=== PATIENT | female | born 1970 | race American Indian/Alaskan Native ===

== ENCOUNTER 2020-11-19 02:37 | Inpatient (IN) | payer MEDICAID, OTHER ==
--- NOTE | 2020-11-19 02:58 | Emergency Department Report ---
HPI - General Chief Complaint: Altered Mental Status Time Seen by Provider: 11/19/20 02:47 - HPI HPI: 50-year-old female with history of ESRD on hemodialysis on unknown schedule brought in by EMS due to worsening altered mental status after the patient mi ssed her last 3 dialysis sessions. The patient is very confused and only answers some questions appropriately. She is not oriented to time or place. She states that she has no physical complaints. When asked why she missed her last 3 dialysis sessions, she replies that she was being lazy. Further details of the HPI are limited due to the patient's current clinical condition. ED Past Medical Hx - Past Medical History Previous Medical History?: Yes Hx Hypertension: Yes Hx Renal Disease: Yes (dialysis) - Social History Smoking Status: Unknown if ever smoked Substance Use Type: None ED Review of Systems ROS: Stated complaint: SOB Other details as noted in HPI Comment: Unobtainable due to pts medical conditions Physical Exam - Physical Exam Physical Exam: GENERAL: Well developed and well nourished. In mild distress. HEENT: Normocephalic. No obvious signs of trauma. Moist mucous membranes. EYES: Extraocular movements are intact. Pupils are equal round and reactive to light bilaterally NECK: Supple. Trachea is midline. LUNGS: Tachypneic but without accessory muscle use. Equal chest rise bilaterally. Lung auscultation reveals bibasilar rales up to the mid lung. HEART/CARDIOVASCULAR: Regular rate and rhythm. No murmurs or rubs. VASCULAR: 2+ peripheral pulses. Cap refill < 2 seconds. Left upper arm fistula with overlying thrill and bruit. 3+ pitting edema of bilateral lower extremities. ABDOMEN: Abdomen is slightly distended but soft. There is no significant tende rness, guarding or rebound. SKIN: Skin is warm and dry NEURO: Patient is awake and alert. She is oriented to self only. She is not oriented to time or place. clean rice grader and reel tender II-XII grossly intact. No focal deficits. Normal motor and sensory exam. MUSCULOSKELETAL: No obvious deformities. No significant tenderness. Normal ROM throughout. ED Medical Decision Making - Lab Data Result diagrams: 11/19/20 03:02 11/19/20 03:02 Lab Results 11/19/20 11/19/20 11/19/20 Range/Units 03:02 03:02 03:02 WBC 7.8 (4.5-11.0) K/mm3 RBC 3.04 L (3.65-5.03) M/mm3 Hgb 8.5 L (10.1-14.3) gm/dl Hct 25.1 L (30.3-42.9) % MCV 83 (79-97) fl MCH 28 (28-32) pg MCHC 34 (30-34) % RDW 15.6 H (13.2-15.2) % Plt Count 210 (140-440) K/mm3 Lymph % (Auto) 26.1 (13.4-35.0) % [place] % (Auto) 4.9 (0.0-7.3) % Eos % (Auto) 1.7 (0.0-4.3) % Baso % (Auto) 0.7 (0.0-1.8) % Lymph # (Auto) 2.0 (1.2-5.4) K/mm3 [place] # (Auto) 0.4 (0.0-0.8) K/mm3 Eos # (Auto) 0.1 (0.0-0.4) K/mm3 Baso # (Auto) 0.1 (0.0-0.1) K/mm3 Seg Neutrophils % 66.6 (40.0-70.0) % Seg Neutrophils # 5.2 (1.8-7.7) K/mm3 PT 14.1 (12.2-14.9) Sec. INR 1.04 (0.87-1.13) APTT 27.4 (24.2-36.6) Sec. Sodium (137-145) mmol/L Potassium (3.6-5.0) mmol/L Chloride (98-107) mmol/L Carbon Dioxide (22-30) mmol/L Anion Gap mmol/L BUN (7-17) mg/dL Creatinine (0.6-1.2) mg/dL Estimated GFR ml/min BUN/Creatinine Ratio % Glucose (65-100) mg/dL Calcium (8.4-10.2) mg/dL Phosphorus (2.5-4.5) mg/dL Magnesium 2.30 (1.7-2.3) mg/dL Total Bilirubin 0.40 (0.1-1.2) mg/dL Direct Bilirubin < 0.2 (0-0.2) mg/dL Indirect Bilirubin 0.2 mg/dL AST 5 (5-40) units/L ALT < 5 L (7-56) units/L Alkaline Phosphatase 92 (35-129) units/L Ammonia (25-60) umol/L Total Protein 7.9 (6.3-8.2) g/dL Albumin 4.4 (3.9-5) g/dL Albumin/Globulin Ratio 1.3 % 11/19/20 11/19/20 11/19/20 Range/Units 03:02 03:02 03:02 WBC (4.5-11.0) K/mm3 RBC (3.65-5.03) M/mm3 Hgb (10.1-14.3) gm/dl Hct (30.3-42.9) % MCV (79-97) fl MCH (28-32) pg MCHC (30-34) % RDW (13.2-15.2) % Plt Count (140-440) K/mm3 Lymph % (Auto) (13.4-35.0) % [place] % (Auto) (0.0-7.3) % Eos % (Auto) (0.0-4.3) % Baso % (Auto) (0.0-1.8) % Lymph # (Auto) (1.2-5.4) K/mm3 [place] # (Auto) (0.0-0.8) K/mm3 Eos # (Auto) (0.0-0.4) K/mm3 Baso # (Auto) (0.0-0.1) K/mm3 Seg Neutrophils % (40.0-70.0) % Seg Neutrophils # (1.8-7.7) K/mm3 PT (12.2-14.9) Sec. INR (0.87-1.13) APTT (24.2-36.6) Sec. Sodium 134 L (137-145) mmol/L Potassium 6.6 H* (3.6-5.0) mmol/L Chloride 100.5 (98-107) mmol/L Carbon Dioxide 13 L (22-30) mmol/L Anion Gap 27 mmol/L BUN 98 H (7-17) mg/dL Creatinine 19.5 H (0.6-1.2) mg/dL Estimated GFR 2 ml/min BUN/Creatinine Ratio 5 % Glucose 105 H (65-100) mg/dL Calcium 10.0 (8.4-10.2) mg/dL Phosphorus 5.90 H (2.5-4.5) mg/dL Magnesium (1.7-2.3) mg/dL Total Bilirubin (0.1-1.2) mg/dL Direct Bilirubin (0-0.2) mg/dL Indirect Bilirubin mg/dL AST (5-40) units/L ALT (7-56) units/L Alkaline Phosphatase (35-129) units/L Ammonia 28.0 (25-60) umol/L Total Protein (6.3-8.2) g/dL Albumin (3.9-5) g/dL Albumin/Globulin Ratio % - EKG Data -: EKG Interpreted by Me - EKG Data 11/19/20 05:18 Sinus tachycardia. Normal axis. Normal intervals. No ectopy. No significant ST segment or T wave abnormalities. - Radiology Data Examination: CT of the head without contrast Clinical information: Altered mental status Comparison: None Technical: Multiple axial CT images of the head were obtained without intravenous contrast. Sagittal and coronal reformats were obtained. All CTs at this facility utilize dose reduction techniques including automated exposure control, iterative reconstruction and weight based dosing when appropriate to reduce patient radiation dose to as low as reasonable achievable. Findings: INTRACRANIAL CONTENTS: There is no CT evidence of acute intracranial hemorrhage or large territorial infarct. The ventricular system is normal in size. There is no evidence of mass effect or midline shift. SKULL: No acute bony abnormality is visualized. ORBITS: The bilateral orbits and globes appear normal PARANASAL SINUSES / MASTOID AIR CELLS: Paranasal sinuses and mastoid air cells appear clear. Impression: 1. No CT evidence of acute intracranial process. Signer Name: Christianne Aviles MD Signed: 11/19/2020 5:34 AM Workstation Name: [id number] CHEST 1 VIEW, 11/19/2020 3:40 AM CLINICAL INFORMATION/INDICATION: Shortness of breath COMPARISON: None. FINDINGS: SUPPORT DEVICES: None. HEART: The cardiac silhouette is normal in size. LUNGS/PLEURA: The lungs are clear of focal airspace disease or significant pleural effusion. ADDITIONAL FINDINGS: No additional acute findings. IMPRESSION: 1. No evidence of acute cardiopulmonary process. Signer Name: Christianne Aviles MD Signed: 11/19/2020 2:55 AM Workstation Name: [id number] - Medical Decision Making 50-year-old female with unknown history other than ESRD on hemodialysis brought in by EMS for altered mental status and apparently shortness of breath. The patient missed her last 3 dialysis sessions. She is unable to explain why. She is hypertensive and tachycardic. She is very confused and details of the HPI are thus very limited. She is not oriented to time or place and believes that it is 1970. Physical examination reveals bibasilar rales. She has 3+ pitting edema bilateral lower extremities. Her left upper extremity fistula has a thrill and bruit. There are no focal neurologic deficits. Given that I am highly suspicious that the patient's altered mental status represents encephalopathy secondary to metabolic disturbance, namely uremia, I immediately placed a call to nephrology to arrange urgent hemodialysis. EKG was performed and does not reveal any acute abnormalities. Full set of labs and chest x-ray have been ordered. At 3:22 AM I spoke with Dr. Dawn of nephrology regarding the case. He says that he will put in orders for urgent dialysis. Given the patient's extremely elevated blood pressure in the 190s to 200s systolic, I have ordered nitroglycerin paste and 10 mg of IV hydralazine. Ultimately her blood pressure will be controlled with hemodialysis. At 4:45 AM, I received a call from the lab that the patient has a critically elevated potassium of 6.6. Again there are no significant EK G changes associated with hyperkalemia on her initial EKG. I ordered 1 g of calcium, 10 units of IV insulin, 1 ampoule of D50, 1 ampoule of bicarbonate, and Kayexalate. She has severe acidosis with bicarb of 13 and anion gap of 27. Her creatinine is elevated at 19.5 consistent with ESRD. BUN is elevated at 98 consistent with uremia. I again spoke with Dr. Dawn over the phone regarding the patient's labs and he states he will have the patient dialyzed as soon as possible. At 5:10 AM I spoke to the hospitalist, Dr. Johnson regarding the case. He accepts the patient for admission and will assume care. Although I suspect that her mental status change is related to metabolic acidosis and uremia, he requested that I order CT scan of the head which I have done. CT of the head reveals no acute abnormalities. Critical Care Time: Yes (80) Critical care time in (mins) excluding proc time.: 80 Critical care attestation.: If time is entered above; I have spent that time in minutes in the direct care of this critically ill patient, excluding procedure time. Critical care time was spent in the evaluation/assessment and management of life-threatening uremia, hyperkalemia, renal failure, and hypertensive urgency requiring administration of multiple IV medications and close monitoring as well as coordination of care with specialist. ED Disposition Clinical Impression: Uremia, Encephalopathy, ESRD (end stage renal disease), Hyperkalemia, Hypertensive urgency Disposition: OP ADMIT IP TO THIS HOSP Is pt being admited?: Yes Condition: Critical
[2020-11-19 03:23] LABS: Basophils # (Auto) 0.1 K/mm3 (0.0-0.1); Basophils % (Auto) 0.7 % (0.0-1.8); Eosinophils # (Auto) 0.1 K/mm3 (0.0-0.4); Eosinophils % (Auto) 1.7 % (0.0-4.3); Hematocrit 25.1 % (30.3-42.9); Hemoglobin 8.5 gm/dl (10.1-14.3); Lymphocytes % (Auto) 26.1 % (13.4-35.0); Mean Corpuscular HGB Conc 34 % (30-34); Mean Corpuscular Volume 83 fl (79-97); Monocytes # (Auto) 0.4 K/mm3 (0.0-0.8); Monocytes % (Auto) 4.9 % (0.0-7.3); Platelet Count 210 K/mm3 (140-440); Red Blood Count 3.04 M/mm3 (3.65-5.03); Red Cell Distribution Width 15.6 % (13.2-15.2)
[2020-11-19 03:31] LABS: INR 1.04 (0.87-1.13)
[2020-11-19 03:32] LABS: Partial Thromboplastin Time 27.4 Sec. (24.2-36.6)
[2020-11-19] MEDS ORDERED: SODIUM CHLORIDE 0.9% 100 ML IV PRN (03:32)
[2020-11-19] MEDS ORDERED: EPOETIN ALFA-EPBX 10,000 UNIT/1 ML VIAL IV PRN ×2 (03:33→19:12)
[2020-11-19 03:48] LABS: Albumin 4.4 g/dL (3.9-5)
[2020-11-19 03:57] LABS: Alanine Aminotransferase < 5 units/L (7-56); Bilirubin,Direct < 0.2 mg/dL (0-0.2)
--- NOTE | 2020-11-19 03:59 | XRay Report ---
CHEST 1 VIEW, 11/19/2020 3:40 AM CLINICAL INFORMATION/INDICATION: Shortness of breath COMPARISON: None. FINDINGS: SUPPORT DEVICES: None. HEART: The cardiac silhouette is normal in size. LUNGS/PLEURA: The lungs are clear of focal airspace disease or significant pleural effusion. ADDITIONAL FINDINGS: No additional acute findings. IMPRESSION: 1. No evidence of acute cardiopulmonary process. Signer Name: Christianne Aviles MD Signed: 11/19/2020 3:55 AM Workstation Name: [id number]
[2020-11-19] MEDS ORDERED: ONDANSETRON 4 MG/2 ML INJ IV ONE (04:22)
[2020-11-19] MEDS ORDERED: NITROGLYCERIN 2% OINT 1 GM TP ONE (04:29)
[2020-11-19] MEDS ORDERED: hydrALAZINE 20 MG/1 ML INJ IV ONE (04:30)
[2020-11-19] MEDS ORDERED: DEXTROSE 50% IN WATER (25GM) 50 ML SYRINGE IV ONE (04:46)
[2020-11-19] MEDS ORDERED: INSULIN REGULAR, HUMAN 100 UNITS/1 ML IV ONE (04:46)
[2020-11-19] MEDS ORDERED: CALCIUM CHLORIDE 1,000 MG in SODIUM CHLORIDE 0.9% 100 ML IV ONE (04:47)
[2020-11-19] MEDS ORDERED: SODIUM POLYSTYRENE 15 GM/60 ML ORAL LIQD PO ONE (04:50)
[2020-11-19] MEDS ORDERED: CALCIUM CHLORIDE 1,000 MG/10 ML SYRINGE IV ONE (05:21)
[2020-11-19] MEDS ORDERED: ACETAMINOPHEN 325 MG TAB PO PRN (05:48)
[2020-11-19] MEDS ORDERED: ONDANSETRON 4 MG/2 ML INJ IV PRN (05:48)
[2020-11-19] MEDS ORDERED: ALBUTEROL 2.5 MG/3 ML NEBU IH PRN (05:48)
--- NOTE | 2020-11-19 05:55 | History and Physical Report ---
History of Present Illness Date of examination: 11/19/20 Date of admission: 11/19/20 05:09 Chief complaint: Altered mental status History of present illness: 50-year-old female with history of hypertension and end-stage renal disease on dialysis on unknown schedule brought in by EMS due to worsening altered mental status after the patient missed her last 3 dialysis sessions. The patient is very confused and only answers some questions appropriately. She is not oriented to time or place. She states that she has no physical complaints. When asked why she missed her last 3 dialysis sessions, she replies that she was being lazy. Further details of the HPI are limited due to the patient's current clinical condition In the emergency room patient is found to have BUN of 98 and creatinine 19.5 and potassium 6.6. Patient is going for emergent dialysis. Nephrology is consulted Past History Past Medical History: ESRD, hypertension, other (Hyperkalemia) Medications and Allergies Allergies Allergy/AdvReac Type Severity Reaction Status Date / Time No Known Allergies Allergy Verified 11/19/20 05:01 Active Meds: Active Medications Sodium Chloride (Nacl 0.9%) 100 mls @ 999 mls/hr IV MARY KAY PRN PRN Reason: Hypotension Review of Systems Neurological: change in mentation, confusion Exam - Constitutional Vitals: Temp Pulse Resp BP Pulse Ox 109 H 13 198/107 100 11/19/20 04:30 11/19/20 04:30 11/19/20 05:41 11/19/20 04:16 General appearance: Present: no acute distress, well-nourished - EENT Eyes: Present: PERRL ENT: hearing intact, clear oral mucosa - Neck Neck: Present: supple, normal ROM - Respiratory Respiratory effort: normal Respiratory: bilateral: CTA - Cardiovascular Heart Sounds: Present: S1 & S2. Absent: rub, click - Extremities Extremities: pulses symmetrical, No edema Peripheral Pulses: within normal limits - Abdominal General gastrointestinal: Present: soft, non-tender, non-distended, normal bowel sounds Female genitourinary: Present: normal - Integumentary Integumentary: Present: clear, warm, dry - Musculoskeletal Musculoskeletal: gait normal, strength equal bilaterally - Psychiatric Psychiatric: other (Confusion) - Neurologic Neurologic: CNII-XII intact, moves all extremities, other (Confused. Alert but not oriented to time and place) Results - Labs CBC & Chem 7: 11/19/20 03:02 11/19/20 03:02 Labs: Laboratory Last Values WBC 7.8 K/mm3 (4.5-11.0) 11/19/20 03:02 RBC 3.04 M/mm3 (3.65-5.03) L 11/19/20 03:02 Hgb 8.5 gm/dl (10.1-14.3) L 11/19/20 03:02 Hct 25.1 % (30.3-42.9) L 11/19/20 03:02 MCV 83 fl (79-97) 11/19/20 03:02 MCH 28 pg (28-32) 11/19/20 03:02 MCHC 34 % (30-34) 11/19/20 03:02 RDW 15.6 % (13.2-15.2) H 11/19/20 03:02 Plt Count 210 K/mm3 (140-440) 11/19/20 03:02 Lymph % (Auto) 26.1 % (13.4-35.0) 11/19/20 03:02 [place] % (Auto) 4.9 % (0.0-7.3) 11/19/20 03:02 Eos % (Auto) 1.7 % (0.0-4.3) 11/19/20 03:02 Baso % (Auto) 0.7 % (0.0-1.8) 11/19/20 03:02 Lymph # (Auto) 2.0 K/mm3 (1.2-5.4) 11/19/20 03:02 [place] # (Auto) 0.4 K/mm3 (0.0-0.8) 11/19/20 03:02 Eos # (Auto) 0.1 K/mm3 (0.0-0.4) 11/19/20 03:02 Baso # (Auto) 0.1 K/mm3 (0.0-0.1) 11/19/20 03:02 Seg Neutrophils % 66.6 % (40.0-70.0) 11/19/20 03:02 Seg Neutrophils # 5.2 K/mm3 (1.8-7.7) 11/19/20 03:02 PT 14.1 Sec. (12.2-14.9) 11/19/20 03:02 INR 1.04 (0.87-1.13) 11/19/20 03:02 APTT 27.4 Sec. (24.2-36.6) 11/19/20 03:02 Sodium 134 mmol/L (137-145) L 11/19/20 03:02 Potassium 6.6 mmol/L (3.6-5.0) H* 11/19/20 03:02 Chloride 100.5 mmol/L (98-107) 11/19/20 03:02 Carbon Dioxide 13 mmol/L (22-30) L 11/19/20 03:02 Anion Gap 27 mmol/L 11/19/20 03:02 BUN 98 mg/dL (7-17) H 11/19/20 03:02 Creatinine 19.5 mg/dL (0.6-1.2) H 11/19/20 03:02 Estimated GFR 2 ml/min 11/19/20 03:02 BUN/Creatinine Ratio 5 % 11/19/20 03:02 Glucose 105 mg/dL (65-100) H 11/19/20 03:02 Calcium 10.0 mg/dL (8.4-10.2) 11/19/20 03:02 Phosphorus 5.90 mg/dL (2.5-4.5) H 11/19/20 03:02 Magnesium 2.30 mg/dL (1.7-2.3) 11/19/20 03:02 Total Bilirubin 0.40 mg/dL (0.1-1.2) 11/19/20 03:02 Direct Bilirubin < 0.2 mg/dL (0-0.2) 11/19/20 03:02 Indirect Bilirubin 0.2 mg/dL 11/19/20 03:02 AST 5 units/L (5-40) 11/19/20 03:02 ALT < 5 units/L (7-56) L 11/19/20 03:02 Alkaline Phosphatase 92 units/L (35-129) 11/19/20 03:02 Ammonia 28.0 umol/L (25-60) 11/19/20 03:02 Total Protein 7.9 g/dL (6.3-8.2) 11/19/20 03:02 Albumin 4.4 g/dL (3.9-5) 11/19/20 03:02 Albumin/Globulin Ratio 1.3 % 11/19/20 03:02 - Imaging and Cardiology Chest x-ray: report reviewed Assessment and Plan VTE prophylaxis?: Chemical Plan of care discussed with patient/family: Yes - Patient Problems (1) End stage renal disease on dialysis Current Visit: Yes Status: Acute Plan to address problem: Admit the patient to the [facility]. Patient get an insulin 10 unit IV x1 dose, D50 1 ampoule. Calcium chloride 100 mg IV x1 dose. consult nephrology for emergent dialysis. Patient is going for emergent dialysis. We will recheck BMP in the morning (2) Hyperkalemia Current Visit: Yes Status: Acute Plan to address problem: Patient get an insulin 10 unit IV x1 dose, D50 1 ampoule. Calcium chloride 100 mg IV x1 dose. consult nephrology for emergent dialysis. Patient is going for dialysis. We will recheck BMP in the morning (3) Acute metabolic encephalopathy Current Visit: Yes Status: Acute Plan to address problem: Most likely from uremia and chronic kidney disease. Patient is going for emergent dialysis. Will consult nephrology. Recheck BMP in the morning. Please follow the CT scan of the head without contrast. (4) Hypertension Current Visit: Yes Status: Acute Plan to address problem: Hydralazine 10 mg IV every 6 hours as needed. We will monitor the blood pressure closely. (5) DVT prophylaxis Current Visit: Yes Status: Acute Plan to address problem: Heparin 5000 units subcu every 8 hours for DVT prophylaxis. Pepcid 20 mg p.o. twice daily for GI prophylaxis. Patient is a full code
[2020-11-19] MEDS ORDERED: SODIUM BICARB 8.4% 50 MEQ/50 ML SYRINGE IV ONE (05:57)
--- NOTE | 2020-11-19 06:38 | Cat Scan Report ---
Examination: CT of the head without contrast Clinical information: Altered mental status Comparison: None Technical: Multiple axial CT images of the head were obtained without intravenous contrast. Sagittal and coronal reformats were obtained. All CTs at this facility utilize dose reduction techniques inc luding automated exposure control, iterative reconstruction and weight based dosing when appropriate to reduce patient radiation dose to as low as reasonable achievable. Findings: INTRACRANIAL CONTENTS: There is no CT evidence of acute intracranial hemorrhage or large territorial infarct. The ventricular system is normal in size. There is no evidence of mass effect or midline lora ft. SKULL: No acute bony abnormality is visualized. ORBITS: The bilateral orbits and globes appear normal PARANASAL SINUSES / MASTOID AIR CELLS: Paranasal sinuses and mastoid air cells appear clear. Impression: 1. No CT evidence of acute intracranial process. Signer Name: Christianne Aviles MD Signed: 11/19/2020 6:34 AM Workstation Name: [id number]
[2020-11-19] MEDS: HEPARIN 5,000 UNIT/1 ML VIAL SUB-Q SCH ×3 (07:44→22:48)
[2020-11-19] MEDS ORDERED: FAMOTIDINE 20 MG TAB PO SCH (10:00)
--- NOTE | 2020-11-19 11:45 | Event Note ---
Date: 11/19/20 I have seen and examined patient at dialysis unit. She is having dialysis, still confused. Potassium 6.6. Will repeat after dialysis. To go to [facility] rm [id number].
[2020-11-19 12:06] LABS: Hepatitis B Surface Antigen Non-Reactive (Negative); Hepatitis C Virus Antibody Non-Reactive (NonReactive)
[2020-11-19] MEDS: FAMOTIDINE 10 MG TAB PO SCH ×2 (14:37→22:49)
[2020-11-19] MEDS: hydrALAZINE 20 MG/1 ML INJ IV PRN (18:33)
[2020-11-19] MEDS ORDERED: amLODIPine 5 MG TAB PO SCH (19:00)
--- NOTE | 2020-11-19 19:07 | Consultation ---
History of Present Illness - Reason for Consult Consult date: 11/19/20 end stage renal disease, hyperkalemia, metabolic acidosis - History of Present Illness This is a 50-year-old woman with end-stage renal disease on hemodialysis and hypertension who was brought in by emergency department due to acute encephalopathy. She reportedly missed her last 3 dialysis sessions and has been confused since admission. History was obtained from chart as patient is encephalopathic. Upon admission she was noted to have a BUN of 98, creatinine of 19.5 and potassium of 6.6. Nephrology was consulted for end-stage renal disease. Past History Past Medical History: ESRD, hypertension, other (Hyperkalemia) Medications and Allergies Allergies Allergy/AdvReac Type Severity Reaction Status Date / Time codeine Allergy Itching Verified 11/19/20 18:48 Active Meds: Active Medications Acetaminophen (Acetaminophen 325 Mg Tab) 650 mg PO Q4H PRN PRN Reason: Pain MILD(1-3)/Fever >100.5/GALVEZ Albuterol (Albuterol 2.5 Mg/3 Ml Nebu) 2.5 mg IH Q4HRT PRN PRN Reason: Shortness Of Breath Amlodipine Besylate (Amlodipine 5 Mg Tab) 5 mg PO QDAY [facility] Famotidine (Famotidine 10 Mg Tab) 10 mg PO BID [facility] Last Admin: 11/19/20 14:37 Dose: Not Given Documented by: Heparin Sodium (Porcine) (Heparin 5,000 Unit/1 Ml Vial) 5,000 unit SUB-Q Q8HR [facility] Last Admin: 11/19/20 15:19 Dose: 5,000 unit Documented by: Hydralazine HCl (Hydralazine 20 Mg/1 Ml Inj) 10 mg IV Q6H PRN PRN Reason: SBP >/=160; DBP >/=100 Last Admin: 11/19/20 18:33 Dose: 10 mg Documented by: Hydralazine HCl (Hydralazine 25 Mg Tab) 50 mg PO Q8HR [facility] Sodium Chloride (Nacl 0.9%) 100 mls @ 999 mls/hr IV MARY KAY PRN PRN Reason: Hypotension Ondansetron HCl (Ondansetron 4 Mg/2 Ml Inj) 4 mg IV Q8H PRN PRN Reason: Nausea And Vomiting Sodium Chloride (Sodium Chloride 0.9% 10 Ml Flush Syringe) 10 ml IV BID [facility] Last Admin: 11/19/20 14:37 Dose: Not Given Documented by: Sodium Chloride (Sodium Chloride 0.9% 10 Ml Flush Syringe) 10 ml IV PRN PRN PRN Reason: LINE FLUSH Review of Systems ROS unobtainable: due to mental status Exam - Vital Signs Vital signs: Vital Signs Pulse Ox 99 11/19/20 03:59 - Physical Exam Narrative exam: General: Mild distress HEENT: Oral mucosa moist Neck: Supple, no JVD Chest: Clear to auscultation bilaterally Heart: RRR, S1 and S2, no pericardial rub Abdomen: Soft, nontender, no renal bruit Extremity: No peripheral cyanosis, edema Neurological: Alert but confused and disoriented Dermatology: No skin rash Psych: No agitation Musculoskeletal: No joint effusion Results - Lab Results 11/19/20 03:02 11/19/20 17:24 Most recent lab results Calcium 10.0 mg/dL (8.4-10.2) 11/19/20 03:02 Phosphorus 5.90 mg/dL (2.5-4.5) H 11/19/20 03:02 Magnesium 2.30 mg/dL (1.7-2.3) 11/19/20 03:02 Assessment and Plan Assessment - End-stage renal disease on hemodialysis - Hyperkalemia - Hypertension - Anemia of ESRD - Acidosis - Acute encephalopathy. CT head negative for acute pathology Recommendations - Urgent HD this morning - Monitor labs and volume status daily and assess need for additional dialysis session - Continue home antihypertensives - Hold antihypertensives on hemodialysis days for systolics less than 160 - Epogen with HD - ESRD diet with 1.4 g/kg per day protein - Renally dose medication for creatinine clearance less than 15 cc/min
--- NOTE | 2020-11-19 19:46 | Electrocardiograph Report ---
[facility] Test Date: 2020-11-19 Test Time: 03:14:42 Pat Name: ZEENAT TERRELL Department: Room: A265 1 Gender: F [employer] Driver: SOUMYA : 1970 Requested By: ARSENIO LUGO Order Number: [id number] Reading MD: Christopher De Los Santos Measurements Intervals [place] Rate: 100 P: 73 NM: 164 QRS: 14 QRSD: 94 T: 102 QT: 354 QTc: 455 Interpretive Statements Sinus tachycardia Non specific T wave abnormalities in 1 and avL. No previous ECG available for comparison Electronically Signed On 11-19-2020 19:46:18 EDT by Christopher De Los Santos
[2020-11-19] MEDS: hydrALAZINE 25 MG TAB PO SCH ×2 (20:04→22:47)
[2020-11-20] MEDS: hydrALAZINE 20 MG/1 ML INJ IV PRN (00:33)
[2020-11-20 04:55] LABS: Basophils % (Auto) 0.6 % (0.0-1.8); Eosinophils % (Auto) 0.2 % (0.0-4.3); Hematocrit 23.4 % (30.3-42.9); Lymphocytes # (Auto) 1.5 K/mm3 (1.2-5.4); Lymphocytes % (Auto) 21.4 % (13.4-35.0); Mean Corpuscular HGB Conc 34 % (30-34); Mean Corpuscular Volume 81 fl (79-97); Monocytes # (Auto) 0.6 K/mm3 (0.0-0.8); Platelet Count 180 K/mm3 (140-440); Red Cell Distribution Width 15.4 % (13.2-15.2)
[2020-11-20 05:19] LABS: Calcium 9.1 mg/dL (8.4-10.2)
[2020-11-20] MEDS: HEPARIN 5,000 UNIT/1 ML VIAL SUB-Q SCH ×3 (05:25→21:44)
[2020-11-20] MEDS: hydrALAZINE 25 MG TAB PO SCH ×3 (05:25→21:44)
[2020-11-20] MEDS ORDERED: amLODIPine 5 MG TAB PO SCH (08:00)
[2020-11-20] MEDS: amLODIPine 10 MG TAB PO SCH (09:58)
[2020-11-20] MEDS: FAMOTIDINE 10 MG TAB PO SCH ×2 (09:58→21:44)
--- NOTE | 2020-11-20 11:42 | Progress Note ---
<TDKimberleeNEHEMIAHFilippo - Last Filed: 11/20/20 13:54> Assessment and Plan Assessment and plan: This is a 50-year-old female with ESRD on HD, HTN, depression admitted for hyperkalemia and need for emergent dialysis Acute metabolic encephalopathy Hyperkalemia ESRD on HD Hypertension Depression -Nephrology consulted emergency department, psych consulted today, appreciate recommendations -S/p insulin 10 units x 1, D50 x1, calcium chloride 1 g x 1 -11/19 CT headshowed no acute intracranial abnormality -HD per nephrology -Strict intake and output -Daily weights -Epogen with HD -Renally dose medications, avoid nephrotoxic medications. -Patient started on amlodipine, hydralazine -Blood pressure monitoring per protocol -Hydralazine as needed -Renal diet -Resume home medications once obtained -Trend CBC, BMP PPI/GI prophylaxis: Heparin subcu, SCDs to bilateral lower extremities while in bed, PPI Disposition: Transfer to floor History Interval history: This is a 50-year-old female with ESRD on HD, HTN, depression who presented to the emergency department on 11/19 with worsening altered mental status after missing 3 sessions of dialysis due to " being lazy". Work-up in the emergency department patient was found to have a BUN/creatinine of 98/19.5, hyperkalemia with potassium of 6.6, hyponatremia, metabolic acidosis and hyperphosphatemia. CT head showed no acute intracranial abnormality and CXR showed no acute evidence of cardiopulmonary process. Patient was admitted to the hospitalist service with emergent need for HD and nephrology was consulted. 11/10: Due to depression history with complications by possible situational depression psych was consulted today. Patient states that she would like to go home. Patient's hyperkalemia has resolved and blood pressure is much improved. Patient will be transferred to the floor. Hospitalist Physical - Constitutional Vitals: Temp Pulse Resp BP Pulse Ox 98.5 F 106 H 16 155/93 97 11/20/20 04:00 11/20/20 07:31 11/20/20 07:31 11/20/20 07:31 11/20/20 07:31 General appearance: Present: no acute distress, well-nourished, obese - EENT Eyes: Present: PERRL, EOM intact ENT: dentition normal - Neck Neck: Present: normal ROM - Respiratory Respiratory effort: normal Respiratory: bilateral: diminished - Cardiovascular Rhythm: regular Heart Sounds: Present: S1 & S2. Absent: systolic murmur, diastolic murmur - Extremities Extremities: no ischemia, pulses intact, pulses symmetrical, No edema, normal temperature, normal color Peripheral Pulses: within normal limits - Abdominal General gastrointestinal: soft, non-tender, non-distended, normal bowel sounds - Integumentary Integumentary: Present: clear, warm, dry - Psychiatric Psychiatric: cooperative, depressed - Neurologic Neurologic: CNII-XII intact, no focal deficits, moves all extremities - Allied Health Allied health notes reviewed: nursing Results - Labs CBC & Chem 7: 11/20/20 04:10 11/20/20 04:10 Labs: Laboratory Last Values WBC 6.9 K/mm3 (4.5-11.0) 11/20/20 04:10 RBC 2.90 M/mm3 (3.65-5.03) L 11/20/20 04:10 Hgb 8.0 gm/dl (10.1-14.3) L 11/20/20 04:10 Hct 23.4 % (30.3-42.9) L 11/20/20 04:10 MCV 81 fl (79-97) 11/20/20 04:10 MCH 28 pg (28-32) 11/20/20 04:10 MCHC 34 % (30-34) 11/20/20 04:10 RDW 15.4 % (13.2-15.2) H 11/20/20 04:10 Plt Count 180 K/mm3 (140-440) 11/20/20 04:10 Lymph % (Auto) 21.4 % (13.4-35.0) 11/20/20 04:10 [place] % (Auto) 9.0 % (0.0-7.3) H 11/20/20 04:10 Eos % (Auto) 0.2 % (0.0-4.3) 11/20/20 04:10 Baso % (Auto) 0.6 % (0.0-1.8) 11/20/20 04:10 Lymph # (Auto) 1.5 K/mm3 (1.2-5.4) 11/20/20 04:10 [place] # (Auto) 0.6 K/mm3 (0.0-0.8) 11/20/20 04:10 Eos # (Auto) 0.0 K/mm3 (0.0-0.4) 11/20/20 04:10 Baso # (Auto) 0.0 K/mm3 (0.0-0.1) 11/20/20 04:10 Seg Neutrophils % 68.8 % (40.0-70.0) 11/20/20 04:10 Seg Neutrophils # 4.7 K/mm3 (1.8-7.7) 11/20/20 04:10 PT 14.1 Sec. (12.2-14.9) 11/19/20 03:02 INR 1.04 (0.87-1.13) 11/19/20 03:02 APTT 27.4 Sec. (24.2-36.6) 11/19/20 03:02 Sodium 138 mmol/L (137-145) 11/20/20 04:10 Potassium 4.3 mmol/L (3.6-5.0) 11/20/20 04:10 Chloride 95.5 mmol/L (98-107) L 11/20/20 04:10 Carbon Dioxide 27 mmol/L (22-30) D 11/20/20 04:10 Anion Gap 20 mmol/L 11/20/20 04:10 BUN 35 mg/dL (7-17) H 11/20/20 04:10 Creatinine 10.1 mg/dL (0.6-1.2) H 11/20/20 04:10 Estimated GFR 5 ml/min 11/20/20 04:10 BUN/Creatinine Ratio 3 % 11/20/20 04:10 Glucose 95 mg/dL (65-100) 11/20/20 04:10 Calcium 9.1 mg/dL (8.4-10.2) 11/20/20 04:10 Phosphorus 5.90 mg/dL (2.5-4.5) H 11/19/20 03:02 Magnesium 2.30 mg/dL (1.7-2.3) 11/19/20 03:02 Total Bilirubin 0.40 mg/dL (0.1-1.2) 11/19/20 03:02 Direct Bilirubin < 0.2 mg/dL (0-0.2) 11/19/20 03:02 Indirect Bilirubin 0.2 mg/dL 11/19/20 03:02 AST 5 units/L (5-40) 11/19/20 03:02 ALT < 5 units/L (7-56) L 11/19/20 03:02 Alkaline Phosphatase 92 units/L (35-129) 11/19/20 03:02 Ammonia 28.0 umol/L (25-60) 11/19/20 03:02 Total Protein 7.9 g/dL (6.3-8.2) 11/19/20 03:02 Albumin 4.4 g/dL (3.9-5) 11/19/20 03:02 Albumin/Globulin Ratio 1.3 % 11/19/20 03:02 Hepatitis A IgM Ab Non-reactive (NonReactive) 11/19/20 11:10 Hep Bs Antigen Non-reactive (Negative) 11/19/20 11:10 Hep B Core IgM Ab Non-reactive (NonReactive) 11/19/20 11:10 Hepatitis C Antibody Non-reactive (NonReactive) 11/19/20 11:10 Active Medications - Current Medications Current Medications: Generic Name Dose Route Start Last Admin Trade Name Freq PRN Reason Stop Dose Admin Acetaminophen 650 mg 11/19/20 05:48 Acetaminophen 325 Mg Tab PO Q4H PRN Pain MILD(1-3)/Fever >100.5/GALVEZ Albuterol 2.5 mg 11/19/20 05:48 Albuterol 2.5 Mg/3 Ml Nebu IH Q4HRT PRN Shortness Of Breath Amlodipine Besylate 10 mg 11/20/20 10:00 11/20/20 09:58 Amlodipine 10 Mg Tab PO 10 mg DAILY AUGUSTUS Administration Famotidine 10 mg 11/19/20 10:00 11/20/20 09:58 Famotidine 10 Mg Tab PO 10 mg BID AUGUSTUS Administration Heparin Sodium (Porcine) 5,000 unit 11/19/20 06:00 11/20/20 05:25 Heparin 5,000 Unit/1 Ml Vial SUB-Q 5,000 unit Q8HR AUG[facility]US Administration Hydralazine HCl 10 mg 11/19/20 05:50 11/20/20 00:33 Hydralazine 20 Mg/1 Ml Inj IV 10 mg Q6H PRN Administration SBP >/=160; DBP >/=100 Hydralazine HCl 50 mg 11/19/20 19:00 11/20/20 05:25 Hydralazine 25 Mg Tab PO 50 mg Q8HR A[facility]US Administration Sodium Chloride 100 mls @ 999 mls/hr 11/19/20 03:32 Nacl 0.9% IV MARY KAY PRN Hypotension Ondansetron HCl 4 mg 11/19/20 05:48 11/19/20 21:09 Ondansetron 4 Mg/2 Ml Inj IV 4 mg Q8H PRN Administration Nausea And Vomiting Sodium Chloride 10 ml 11/19/20 10:00 11/20/20 09:59 Sodium Chloride 0.9% 10 Ml Flush Syringe IV 10 ml BID AUGUSTUS Administration Sodium Chloride 10 ml 11/19/20 05:48 Sodium Chloride 0.9% 10 Ml Flush Syringe IV PRN PRN LINE FLUSH <CASSIDY KRISHNAN - Last Filed: 12/12/20 11:29> Assessment and Plan Assessment and plan: I saw and evaluated the patient and discussed with Nurse practitioner. I agree with the findings and the plan of care as documented in the Nurse Practitioner's~note, with the following corrections and additions. Patient with acute metabolic encephalopathy due to uremia from missed hemodialysis. - Patient Problems (1) Acute metabolic encephalopathy Status: Acute (2) End stage renal disease on dialysis Status: Acute (3) Hyperkalemia Status: Acute Hospitalist Physical - Constitutional Vitals: Temp Pulse Resp BP Pulse Ox 97.9 F 103 H 11 L 105/74 94 11/21/20 08:00 11/21/20 12:01 11/21/20 12:01 11/21/20 10:01 11/21/20 09:00 Results - Labs CBC & Chem 7: 11/20/20 04:10 11/21/20 04:27 Labs: Laboratory Last Values WBC 6.9 K/mm3 (4.5-11.0) 11/20/20 04:10 RBC 2.90 M/mm3 (3.65-5.03) L 11/20/20 04:10 Hgb 8.0 gm/dl (10.1-14.3) L 11/20/20 04:10 Hct 23.4 % (30.3-42.9) L 11/20/20 04:10 MCV 81 fl (79-97) 11/20/20 04:10 MCH 28 pg (28-32) 11/20/20 04:10 MCHC 34 % (30-34) 11/20/20 04:10 RDW 15.4 % (13.2-15.2) H 11/20/20 04:10 Plt Count 180 K/mm3 (140-440) 11/20/20 04:10 Lymph % (Auto) 21.4 % (13.4-35.0) 11/20/20 04:10 Rose[place] % (Auto) 9.0 % (0.0-7.3) H 11/20/20 04:10 Eos % (Auto) 0.2 % (0.0-4.3) 11/20/20 04:10 Baso % (Auto) 0.6 % (0.0-1.8) 11/20/20 04:10 Lymph # (Auto) 1.5 K/mm3 (1.2-5.4) 11/20/20 04:10 [place] # (Auto) 0.6 K/mm3 (0.0-0.8) 11/20/20 04:10 Eos # (Auto) 0.0 K/mm3 (0.0-0.4) 11/20/20 04:10 Baso # (Auto) 0.0 K/mm3 (0.0-0.1) 11/20/20 04:10 Seg Neutrophils % 68.8 % (40.0-70.0) 11/20/20 04:10 Seg Neutrophils # 4.7 K/mm3 (1.8-7.7) 11/20/20 04:10 PT 14.1 Sec. (12.2-14.9) 11/19/20 03:02 INR 1.04 (0.87-1.13) 11/19/20 03:02 APTT 27.4 Sec. (24.2-36.6) 11/19/20 03:02 Sodium 134 mmol/L (137-145) L 11/21/20 04:27 Potassium 4.5 mmol/L (3.6-5.0) 11/21/20 04:27 Chloride 93.4 mmol/L (98-107) L 11/21/20 04:27 Carbon Dioxide 29 mmol/L (22-30) 11/21/20 04:27 Anion Gap 16 mmol/L 11/21/20 04:27 BUN 40 mg/dL (7-17) H 11/21/20 04:27 Creatinine 12.2 mg/dL (0.6-1.2) H 11/21/20 04:27 Estimated GFR 4 ml/min 11/21/20 04:27 BUN/Creatinine Ratio 3 % 11/21/20 04:27 Glucose 98 mg/dL (65-100) 11/21/20 04:27 Calcium 9.2 mg/dL (8.4-10.2) 11/21/20 04:27 Phosphorus 5.90 mg/dL (2.5-4.5) H 11/19/20 03:02 Magnesium 2.30 mg/dL (1.7-2.3) 11/19/20 03:02 Total Bilirubin 0.40 mg/dL (0.1-1.2) 11/19/20 03:02 Direct Bilirubin < 0.2 mg/dL (0-0.2) 11/19/20 03:02 Indirect Bilirubin 0.2 mg/dL 11/19/20 03:02 AST 5 units/L (5-40) 11/19/20 03:02 ALT < 5 units/L (7-56) L 11/19/20 03:02 Alkaline Phosphatase 92 units/L (35-129) 11/19/20 03:02 Ammonia 28.0 umol/L (25-60) 11/19/20 03:02 Total Protein 7.9 g/dL (6.3-8.2) 11/19/20 03:02 Albumin 4.4 g/dL (3.9-5) 11/19/20 03:02 Albumin/Globulin Ratio 1.3 % 11/19/20 03:02 Hepatitis A IgM Ab Non-reactive (NonReactive) 11/19/20 11:10 Hep Bs Antigen Non-reactive (Negative) 11/19/20 11:10 Hep B Core IgM Ab Non-reactive (NonReactive) 11/19/20 11:10 Hepatitis C Antibody Non-reactive (NonReactive) 11/19/20 11:10 Auguste/IV: Voiding Method Toilet
--- NOTE | 2020-11-20 12:39 | Consultation ---
History of Present Illness - Reason for Consult Consult date: 11/20/20 Reason for consult: hx of depression and anxiety - History of Present Psychiatric Illness Yeimi Romero is a 50y/o female patient who presented to the ER for AMS. The patient is an ESRD patient on hemodialysis. During my evaluations, she is awake. She is a/x 3. She is calm and cooperative. The patient says she has a history of depression and bipolar. She says her mental health is managed by her outpatient psychiatrist. The patient says she does well on her current meds but haven't been getting them here. The patient says she takes Latuda, trazodone, xanax and effexor. She says she was "a little depressed but feels better now." The patient says her grandmother recently . She denies any illicit drug use, alcohol or nicotine. PAST PSYCHIATRIC HISTORY Diagnoses: Bipolar, depression Suicide attempts or Self-harm behavior: Denies Prior psychiatric hospitalizations: Denies Substance Abuse history: Denies Previous psychiatric medications tried: latuda, trazodone, xanax, effexor Outpatient treatment: Yes PAST MEDICAL HISTORY: ESRD, dialysis Family Psychiatric History: None reported or documented SOCIAL HISTORY Marital Status: Single Living Arrangements: With daughter Employment Status: On SSI Access to guns/weapons: Denies Education: High school History of Abuse: Verbal Legal History: None reported REVIEW OF SYSTEMS Constitutional: Negative for weight loss ENT: Negative for stridor Respiratory: Negative for cough or hemoptysis All other systems reviewed and are negative MENTAL STATUS EXAMINATION General Appearance and Behavior: Age appropriate, fair hygiene hygiene, wearing appropriate clothes, good eye contact, calm and cooperative Cooperation: Participating/engaged Psychomotor Behavior: Psychomotor normal Mood: "better" Affect and affective range: Euthymic Thought Process: Goal directed Thought Content: None Speech: Normal rate, volume and rhythm Intellectual Functioning: Average Suicidal Ideation: Denies SI Homicidal Ideation: Denies HI Hallucinations: Denies Delusions: None reported Impulse Control: Unimpaired Insight and Judgment: Normal insight and judgment Memory: Normal Attention: Normal Orientation: Alert, oriented Assessment and Plan (1) Bipolar Disorder hx (2) Generalized Anxiety Disorder Current Visit: Yes Status: Acute Treatment Plan Continue Home Effexor 37.5mg po daily Continue home trazodone 150mg po qhs Decrease Home Xanax 1mg po BID prn anxiety Start Abilify 5mg po daily, until the patient is discharged. She takes Latuda but the hospital does not carry it. Sitter: Per primary Medical: Per primary Disposition: Do not recommend acute psychiatric inpatient treatment Will sign off. Thank you for this consult Case staffed with Dr. Chacko Medications and Allergies Allergies Allergy/AdvReac Type Severity Reaction Status Date / Time codeine Allergy Itching Verified 11/19/20 18:48 Active Meds: Active Medications Acetaminophen (Acetaminophen 325 Mg Tab) 650 mg PO Q4H PRN PRN Reason: Pain MILD(1-3)/Fever >100.5/GALVEZ Albuterol (Albuterol 2.5 Mg/3 Ml Nebu) 2.5 mg IH Q4HRT PRN PRN Reason: Shortness Of Breath Amlodipine Besylate (Amlodipine 10 Mg Tab) 10 mg PO DAILY [facility] Last Admin: 11/20/20 09:58 Dose: 10 mg Documented by: Famotidine (Famotidine 10 Mg Tab) 10 mg PO BID [facility] Last Admin: 11/20/20 09:58 Dose: 10 mg Documented by: Heparin Sodium (Porcine) (Heparin 5,000 Unit/1 Ml Vial) 5,000 unit SUB-Q Q8HR [facility] Last Admin: 11/20/20 05:25 Dose: 5,000 unit Documented by: Hydralazine HCl (Hydralazine 20 Mg/1 Ml Inj) 10 mg IV Q6H PRN PRN Reason: SBP >/=160; DBP >/=100 Last Admin: 11/20/20 00:33 Dose: 10 mg Documented by: Hydralazine HCl (Hydralazine 25 Mg Tab) 50 mg PO Q8HR [facility] Last Admin: 11/20/20 05:25 Dose: 50 mg Documented by: Sodium Chloride (Nacl 0.9%) 100 mls @ 999 mls/hr IV MARY KAY PRN PRN Reason: Hypotension Ondansetron HCl (Ondansetron 4 Mg/2 Ml Inj) 4 mg IV Q8H PRN PRN Reason: Nausea And Vomiting Last Admin: 11/19/20 21:09 Dose: 4 mg Documented by: Sodium Chloride (Sodium Chloride 0.9% 10 Ml Flush Syringe) 10 ml IV BID [facility] Last Admin: 11/20/20 09:59 Dose: 10 ml Documented by: Sodium Chloride (Sodium Chloride 0.9% 10 Ml Flush Syringe) 10 ml IV PRN PRN PRN Reason: LINE FLUSH Mental Status Exam - Vital signs Last Vital Signs Temp 98.5 F 11/20/20 04:00 Pulse 106 H 11/20/20 07:31 Resp 16 11/20/20 07:31 BP 155/93 11/20/20 07:31 Pulse Ox 97 11/20/20 07:31 Results Result Diagrams: 11/20/20 04:10 11/20/20 04:10 Abnormal lab results 11/20/20 11/20/20 Range/Units 04:10 04:10 RBC 2.90 L (3.65-5.03) M/mm3 Hgb 8.0 L (10.1-14.3) gm/dl Hct 23.4 L (30.3-42.9) % RDW 15.4 H (13.2-15.2) % [place] % (Auto) 9.0 H (0.0-7.3) % Chloride 95.5 L (98-107) mmol/L BUN 35 H (7-17) mg/dL Creatinine 10.1 H (0.6-1.2) mg/dL All other labs normal.
[2020-11-20] MEDS ORDERED: ARIPiprazole 5 MG TAB PO SCH (14:00)
[2020-11-20] MEDS: VENLAFAXINE 37.5 MG TAB PO SCH (15:59)
[2020-11-20] MEDS ORDERED: ONDANSETRON 4 MG ODT TAB PO PRN (19:41)
--- NOTE | 2020-11-20 20:15 | Progress Note ---
Assessment and Plan Assessment - End-stage renal disease on hemodialysis - Hyperkalemia - Hypertension - Anemia of ESRD - Acidosis - Acute encephalopathy. CT head negative for acute pathology Recommendations - No indication for HD today, continue MWF - Monitor labs and volume status daily and assess need for additional dialysis session - Continue home antihypertensives - Hold antihypertensives on hemodialysis days for systolics less than 160 - Epogen with HD - ESRD diet with 1.4 g/kg per day protein - Renally dose medication for creatinine clearance less than 15 cc/min Subjective Date of service: 11/20/20 Principal diagnosis: Acute encephalopathy Interval history: Mentation improved this morning. Responding appropriately to questions. Objective - Exam Narrative Exam: General: Mild distress HEENT: Oral mucosa moist Neck: Supple, no JVD Chest: Clear to auscultation bilaterally Heart: RRR, S1 and S2, no pericardial rub Abdomen: Soft, nontender, no renal bruit Extremity: No peripheral cyanosis, edema Neurological: Alert but confused and disoriented Dermatology: No skin rash Psych: No agitation Musculoskeletal: No joint effusion - Vital Signs Vital signs: Vital Signs - 12hr 11/20/20 11/20/20 11/20/20 09:00 10:00 11:00 Temperature Pulse Rate 86 91 H 82 Respiratory 15 13 15 Rate Blood Pressure 145/70 143/86 122/74 O2 Sat by Pulse 100 Oximetry 11/20/20 11/20/20 11/20/20 12:00 13:00 14:00 Temperature 98.5 F Pulse Rate 86 103 H 85 Respiratory 17 13 15 Rate Blood Pressure 140/77 136/79 137/72 O2 Sat by Pulse 100 98 100 Oximetry 11/20/20 11/20/20 11/20/20 15:00 15:59 16:00 Temperature 98.7 F Pulse Rate 87 91 H Respiratory 18 16 Rate Blood Pressure 135/78 163/82 163/82 O2 Sat by Pulse 85 100 Oximetry 11/20/20 11/20/20 11/20/20 17:00 18:00 19:49 Temperature 98.4 F Pulse Rate 86 91 H Respiratory 14 15 Rate Blood Pressure 150/83 137/73 O2 Sat by Pulse 100 98 Oximetry - Lab 11/20/20 04:10 11/20/20 04:10 Most recent lab results Calcium 9.1 mg/dL (8.4-10.2) 11/20/20 04:10 Phosphorus 5.90 mg/dL (2.5-4.5) H 11/19/20 03:02 Magnesium 2.30 mg/dL (1.7-2.3) 11/19/20 03:02 Medications & Allergies - Medications Allergies/Adverse Reactions: Allergies codeine Allergy (Verified 11/19/20 18:48) Itching Home Medications: Home Medications Medication Instructions Recorded Confirmed Last Taken Type ALPRAZolam [Xanax TAB] BID 11/20/20 Unknown History Latuda 75 mg PO DAILY 11/20/20 11/20/20 Unknown History Trazodone HCl [traZODone] 150 mg PO QHS 11/20/20 11/20/20 Unknown History Active Medications: Generic Name Dose Route Start Last Admin Trade Name Freq PRN Reason Stop Dose Admin Acetaminophen 650 mg 11/19/20 05:48 Acetaminophen 325 Mg Tab PO Q4H PRN Pain MILD(1-3)/Fever >100.5/GALVEZ Albuterol 2.5 mg 11/19/20 05:48 Albuterol 2.5 Mg/3 Ml Nebu IH Q4HRT PRN Shortness Of Breath Alprazolam 1 mg 11/20/20 13:00 Alprazolam 1 Mg Tab PO BID PRN Anxiety Amlodipine Besylate 10 mg 11/20/20 10:00 11/20/20 09:58 Amlodipine 10 Mg Tab PO 10 mg DAILY AUGUSTUS Administration Aripiprazole 5 mg 11/20/20 14:00 11/20/20 15:59 Aripiprazole 5 Mg Tab PO 5 mg QDAY AUGUSTUS Administration Famotidine 10 mg 11/19/20 10:00 11/20/20 09:58 Famotidine 10 Mg Tab PO 10 mg BID AUGUSTUS Administration Heparin Sodium (Porcine) 5,000 unit 11/19/20 06:00 11/20/20 16:05 Heparin 5,000 Unit/1 Ml Vial SUB-Q 5,000 unit Q8HR [facility]US Administration Hydralazine HCl 10 mg 11/19/20 05:50 11/20/20 00:33 Hydralazine 20 Mg/1 Ml Inj IV 10 mg Q6H PRN Administration SBP >/=160; DBP >/=100 Hydralazine HCl 50 mg 11/19/20 19:00 11/20/20 15:59 Hydralazine 25 Mg Tab PO 50 mg Q8HR [facility]US Administration Sodium Chloride 100 mls @ 999 mls/hr 11/19/20 03:32 Nacl 0.9% IV MARY KAY PRN Hypotension Ondansetron HCl 4 mg 11/19/20 05:48 11/19/20 21:09 Ondansetron 4 Mg/2 Ml Inj IV 4 mg Q8H PRN Administration Nausea And Vomiting Ondansetron HCl 4 mg 11/20/20 19:41 Ondansetron 4 Mg Odt Tab PO Q3H PRN Nausea And Vomiting Sodium Chloride 10 ml 11/19/20 10:00 11/20/20 09:59 Sodium Chloride 0.9% 10 Ml Flush Syringe IV 10 ml BID [facility]UG[facility]US Administration Sodium Chloride 10 ml 11/19/20 05:48 Sodium Chloride 0.9% 10 Ml Flush Syringe IV PRN PRN LINE FLUSH Trazodone HCl 150 mg 11/20/20 22:00 Trazodone 50 Mg Tab PO QHS AUGUSTUS Venlafaxine HCl 37.5 mg 11/20/20 14:00 11/20/20 15:59 Venlafaxine 37.5 Mg Tab PO 37.5 mg DAILY AUGUSTUS Administration
[2020-11-20] MEDS: ALPRAZolam 1 MG TAB PO PRN (21:50)
[2020-11-20] MEDS ORDERED: traZODone 50 MG TAB PO SCH (22:00)
[2020-11-21 05:14] LABS: Calcium 9.2 mg/dL (8.4-10.2)
[2020-11-21] MEDS: HEPARIN 5,000 UNIT/1 ML VIAL SUB-Q SCH (06:48)
[2020-11-21] MEDS: hydrALAZINE 25 MG TAB PO SCH (06:48)
[2020-11-21] MEDS: FAMOTIDINE 10 MG TAB PO SCH (08:45)
[2020-11-21] MEDS: ALPRAZolam 1 MG TAB PO PRN (08:45)
[2020-11-21] MEDS: amLODIPine 10 MG TAB PO SCH (08:45)
[2020-11-21] MEDS: VENLAFAXINE 37.5 MG TAB PO SCH (08:45)
--- NOTE | 2020-11-21 08:50 | Discharge Summary ---
Providers - Providers Date of Admission: 11/19/20 05:09 Date of discharge: 11/21/20 Attending physician: CASSIDY KRISHNAN 11/19/20 03:23 Consult to Physician [CONS] Stat Comment: Dr. Milton spoke with Dr. Dawn @ [id number] Consulting Provider: ARELY DAWN Physician Instructions: Reason For Exam: dialysis 11/20/20 09:52 Consult to Physician [CONS] Routine Comment: Consulting Provider: MARCO COWAN Physician Instructions: Reason For Exam: hx of depression. ? c/b situational depression Primary care physician: PRODUCTION SUPPORT CONSULTANT Hospitalization Condition: Fair Hospital course: 50-year-old female with history of hypertension and end-stage renal disease on dialysis on unknown schedule brought in by EMS due to worsening altered mental status after the patient missed her last 3 dialysis sessions. The patient was very confused and only answers some questions appropriately. She is not oriented to time or place. She states that she has no physical complaints. When asked why she missed her last 3 dialysis sessions, she replies that she was being lazy. Further details of the HPI are limited due to the patient's current clinical condition. In the emergency room patient is found to have BUN of 98 and creatinine 19.5 and potassium 6.6. Patient was given calcium Chloride, Kionex. She was admitted for emergent dialysis. Nephrology was consulted, and dialysis done. Post dialysis her Potassium was 4.0. Her mental status improved and she was discharged home on 11/21/20. Acute metabolic encephalopathy Hyperkalemia ESRD on HD Hypertension Depression -Nephrology consulted emergency department, psych consulted today, appreciate recommendations -S/p insulin 10 units x 1, D50 x1, calcium chloride 1 g x 1 -11/19 CT headshowed no acute intracranial abnormality -HD per nephrology -Strict intake and output -Daily weights -Epogen with HD -Renally dose medications, avoid nephrotoxic medications. -Patient started on amlodipine, hydralazine -Blood pressure monitoring per protocol -Hydralazine as needed -Renal diet -Resume home medications once obtained -Trend CBC, BMP Disposition: DC- TO HOME OR SELFCARE Final Discharge Diagnosis (Prints w/discharge instructions): 1.Acute metabolic encephalopathy. 2.ESRD on hemodialysis. 3.Hyperkalemia Time spent for discharge: 35 mins - Discharge Diagnoses (1) Acute metabolic encephalopathy Status: Acute (2) End stage renal disease on dialysis Status: Chronic (3) Hyperkalemia Status: Acute (4) Hypertensive urgency Status: Acute Core Measure Documentation - Palliative Care Palliative Care/ Comfort Measures: Not Applicable - Core Measures Any of the following diagnoses?: none Exam - Constitutional Vitals: Temp Pulse Resp BP Pulse Ox 98.1 F 81 15 132/74 87 11/21/20 03:23 11/21/20 06:48 11/21/20 06:30 11/21/20 06:48 11/21/20 06:30 Plan Activity: advance as tolerated Diet: low fat, low cholesterol, low salt, renal Plan of Treatment: 1.Follow up with PCP in 1 week 2.Continue hemodialysis as scheduled on // Follow up with: PRIMARY MD DELFINA [Primary Care Provider] - 3-5 Days
[2020-11-21 12:58] VITALS: BP 105/74
--- NOTE | 2020-11-21 18:10 | Progress Note ---
Assessment and Plan Assessment - End-stage renal disease on hemodialysis - Hyperkalemia, controlled with HD - Hypertension - Hyponatremia, mild - Anemia of ESRD - Acidosis, improved with HD - Acute encephalopathy. CT head negative for acute pathology Recommendations - No indication for HD today, continue MWF - Monitor labs and volume status daily and assess need for additional dialysis session - Continue home antihypertensives - Hold antihypertensives on hemodialysis days for systolics less than 160 - Epogen with HD - ESRD diet with 1.4 g/kg per day protein - Renally dose medication for creatinine clearance less than 15 cc/min Subjective Date of service: 11/21/20 Principal diagnosis: Acute encephalopathy Interval history: Sitting up in chair. Responding appropriately. Objective - Exam Narrative Exam: General: Mild distress HEENT: Oral mucosa moist Neck: Supple, no JVD Chest: Clear to auscultation bilaterally Heart: RRR, S1 and S2, no pericardial rub Abdomen: Soft, nontender, no renal bruit Extremity: No peripheral cyanosis, edema Neurological: Alert but confused and disoriented Dermatology: No skin rash Psych: No agitation Musculoskeletal: No joint effusion - Vital Signs Vital signs: Vital Signs - 12hr 11/21/20 11/21/20 11/21/20 06:30 06:48 07:00 Temperature Pulse Rate 81 81 85 Respiratory 15 14 Rate Blood Pressure 132/74 132/74 145/83 O2 Sat by Pulse 87 91 Oximetry 11/21/20 11/21/20 11/21/20 08:00 08:01 09:00 Temperature 97.9 F Pulse Rate 104 H 93 H Respiratory 17 16 Rate Blood Pressure 142/90 133/66 O2 Sat by Pulse 92 94 Oximetry 11/21/20 11/21/20 11/21/20 10:01 11:01 12:01 Temperature Pulse Rate 91 H 89 103 H Respiratory 15 18 11 L Rate Blood Pressure 105/74 O2 Sat by Pulse Oximetry - Lab 11/20/20 04:10 11/21/20 04:27 Most recent lab results Calcium 9.2 mg/dL (8.4-10.2) 11/21/20 04:27 Phosphorus 5.90 mg/dL (2.5-4.5) H 11/19/20 03:02 Magnesium 2.30 mg/dL (1.7-2.3) 11/19/20 03:02 Medications & Allergies - Medications Allergies/Adverse Reactions: Allergies codeine Allergy (Verified 11/19/20 18:48) Itching Home Medications: Home Medications Medication Instructions Recorded Confirmed Last Taken Type ALPRAZolam [Xanax TAB] 2 mg PO BID 11/20/20 11/20/20 Unknown History Amlodipine Besylate [Norvasc] 10 mg PO QDAY 11/20/20 11/20/20 Unknown History Latuda 40 mg PO QHS 11/20/20 11/20/20 Unknown History Losartan Potassium 100 mg PO QDAY 11/20/20 11/20/20 Unknown History Metoprolol [Lopressor TAB] 100 mg PO QDAY 11/20/20 11/20/20 Unknown History Trazodone HCl [traZODone] 150 mg PO QHS 11/20/20 11/20/20 Unknown History Venlafaxine Xr [Effexor XR] 75 mg PO QHS 11/20/20 11/20/20 Unknown History Sevelamer Carbonate [Renvela] 2,400 mg PO TIDWM 11/21/20 11/21/20 Unknown History
== END 2020-11-21 16:00 | disposition home or self-care (01) | DRG 70 ==
LOC: ED 02:37 → IMCU 05:09
PROVIDERS: ADMIT Hospitalist; ATTEND Internal Medicine
PROC: 5A1D70Z Performance of Urinary Filtration, Intermittent, Less than 6 Hours Per Day (ICD-10-PCS; principal; 2020-11-19)
DX: G93.41 Metabolic encephalopathy (principal); N18.6 End stage renal disease; E87.5 Hyperkalemia; F41.1 Generalized anxiety disorder; F31.9 Bipolar disorder, unspecified; I12.0 Hypertensive chronic kidney disease with stage 5 chronic kidney disease or end stage renal disease; D63.1 Anemia in chronic kidney disease; E87.2 Acidosis; E87.1 Hypo-osmolality and hyponatremia; I16.0 Hypertensive urgency; Z99.2 Dependence on renal dialysis; Z88.5 Allergy status to narcotic agent
CPT/HCPCS: 36415; 70450; 71045; 80048; 80074; 80076; 82140; 83735; 84100; 84132; 85025; 85610; 85730; 93005; 96374; 96375; 99292; G0378; J0360; J0885; J1644; J1815; J2405; Q0162

== ENCOUNTER 2021-10-29 11:26 | Emergency (ER) | payer MEDICAID ==
[2021-10-29 12:01] VITALS: BP 160/86
--- NOTE | 2021-10-29 12:16 | Emergency Department Report ---
[facility] Chief Complaint: Eye Problems Stated Complaint: PINK EYE Time Seen by Provider: 10/29/21 12:10 Side: Bilateral Severity: moderate Symptoms: Yes Eye Itching, Yes Eye Redness, Yes Eye Pain (Pain with movement), Yes Mucous Drainage, Yes Purulent Drainage, No Blurred Vision, No Preceding URI, No H/O Allergic Rhinitis, No Contact Lens Use, No Trauma, No Fever, No Headache Other History: Patient 51-year-old female who presents with 3 additional family members are with marcelinoe. States started with youngest child now family members have same symptoms conjunctival erythema drainage matting. There are no other symptoms no fevers no chills no nausea no vomiting no shortness of breath no sore throat no ear pain. Symptoms are exacerbated by movement. Symptoms are relieved by nothing tried. Been no loss or decrease in vision. ED Review of Systems ROS: Stated complaint: PINK EYE Other details as noted in HPI Constitutional: denies: chills, fever Eyes: eye pain (Itching and burning), eye discharge. denies: vision change ENT: denies: ear pain, throat pain Respiratory: denies: cough, shortness of breath, wheezing Cardiovascular: denies: chest pain, palpitations Endocrine: no symptoms reported Gastrointestinal: denies: abdominal pain, nausea, diarrhea Genitourinary: denies: urgency, dysuria, discharge Musculoskeletal: denies: back pain, joint swelling, arthralgia Skin: denies: rash, lesions Neurological: denies: headache, weakness, paresthesias Psychiatric: denies: anxiety, depression Hematological/Lymphatic: denies: easy bleeding, easy bruising ED Past Medical Hx - Past Medical History Hx Hypertension: Yes Hx Congestive Heart Failure: Yes Hx Diabetes: Yes Hx Renal Disease: Yes (dialysis) Hx Asthma: No Hx COPD: No - Social History Smoking Status: Never Smoker - Medications Home Medications: Home Medications Medication Instructions Recorded Confirmed Last Taken Type ALPRAZolam [Xanax TAB] 2 mg PO BID 11/20/20 11/20/20 Unknown History Amlodipine Besylate [Norvasc] 10 mg PO QDAY 11/20/20 11/20/20 Unknown History Latuda 40 mg PO QHS 11/20/20 11/20/20 Unknown History Losartan Potassium 100 mg PO QDAY 11/20/20 11/20/20 Unknown History Metoprolol [Lopressor TAB] 100 mg PO QDAY 11/20/20 11/20/20 Unknown History Trazodone HCl [traZODone] 150 mg PO QHS 11/20/20 11/20/20 Unknown History Venlafaxine Xr [Effexor XR] 75 mg PO QHS 11/20/20 11/20/20 Unknown History Sevelamer Carbonate [Renvela] 2,400 mg PO TIDWM 11/21/20 11/21/20 Unknown History Polymyxin B Sulf/Trimethoprim 2 drop OU Q3H 7 Days #10 ml 10/29/21 Unknown Rx [Polytrim Eye Drops] [facility] Exam - Exam General: Vital signs noted. No distress. Alert and acting appropriately. Eye Exam: Both Injection, Both EOMI, Both Mucous Discharge, Both Purulent Discharge, Neither Chemosis, Neither Abnormal Pupil, Neither Eye Foreign Body, Neither Lid Foreign Body, Neither Photophobia HEENT: No Nasal Congestion, No Pharyngeal Erythema Remainder of HEENT: Normal Lungs: Yes Clear Lung Sounds, Yes Good Air Exchange, No Wheezes, No Stridor, No Cough, No Nasal Flaring, No Retractions, No Use of Accessory Muscles Exam: Patient appears nontoxic PERRLA EOMI conjunctival injection bilateral yellow clear drainage noted ED Course Vital Signs 10/29/21 11:59 Temperature 98.2 F Pulse Rate 89 Respiratory 18 Rate Blood Pressure 160/86 [Right] O2 Sat by Pulse 99 Oximetry ED Medical Decision Making - Medical Decision Making The straight for conjunctivitis x4 patient same house plan Polytrim 2 drops each eye every 3 hours while awake. Follow-up with primary care doctor and ophthalmology. Turn to emergency department should symptoms worsen. This is patient 89. Critical care attestation.: If time is entered above; I have spent that time in minutes in the direct care of this critically ill patient, excluding procedure time. ED Disposition Clinical Impression: Conjunctivitis Qualifiers: Conjunctivitis type: acute Acute conjunctivitis type: bacterial Laterality: bilateral Qualified Code(s): H10.33 - Unspecified acute conjunctivitis, bilateral Disposition: 01 HOME / SELF CARE / HOMELESS Is pt being admited?: No Does the pt Need Aspirin: No Condition: Stable Instructions: How to Use Eye Drops and Eye Ointments Additional Instructions: Use eyedrops as directed. Wash hands as directed. Follow-up with your doctor in 2 to 3 days. Follow-up with ophthalmology in 2 to 3 days. Return to emergency department should symptoms worsen. Prescriptions: Polymyxin B Sulf/Trimethoprim [Polytrim Eye Drops] 2 drop OU Q3H 7 Days #10 ml Referrals: MAYANK ALVARADO MD [Staff Physician] - 3-5 Days FAISAL ALMODOVAR MD [Staff Physician] - 3-5 Days Forms: Work/School Release Form(ED) Time of Disposition: 12:17
== END 2021-10-29 13:31 | disposition home or self-care (01) ==
LOC: ED 11:26
DX: H10.9 Unspecified conjunctivitis (principal); I13.2 Hypertensive heart and chronic kidney disease with heart failure and with stage 5 chronic kidney disease, or end stage renal disease; E11.22 Type 2 diabetes mellitus with diabetic chronic kidney disease; N18.6 End stage renal disease; I50.9 Heart failure, unspecified; Z99.2 Dependence on renal dialysis
CPT/HCPCS: 99282

== ENCOUNTER 2021-11-07 16:27 | Emergency (ER) | payer MEDICAID ==
[2021-11-07 16:36] VITALS: BP 162/78
--- NOTE | 2021-11-07 17:30 | XRay Report ---
CHEST 2 VIEWS INDICATION / CLINICAL INFORMATION: Dyspnea. Chest pain and shortness of breath for one month. COMPARISON: 11/19/20. FINDINGS: SUPPORT DEVICES: None. HEART / MEDIASTINUM: There is mild to moderate cardiomegaly. Pulmonary vasculature is normal. The aor ta is normal in caliber. LUNGS / PLEURA: No significant pulmonary or pleural abnormality. No pneumothorax. ADDITIONAL FINDINGS: No significant additional findings. IMPRESSION: Cardiomegaly without acute abnormality or significant change. Signer Name: Alexander Rai MD Signed: 11/07/2021 5:26 PM Workstation Name: [email or web address]
[2021-11-07 18:36] LABS: Basophils # (Auto) 0.1 K/mm3 (0.0-0.1); Eosinophils # (Auto) 0.2 K/mm3 (0.0-0.4); Eosinophils % (Auto) 3.1 % (0.0-4.3); Lymphocytes # (Auto) 1.1 K/mm3 (1.2-5.4); Lymphocytes % (Auto) 16.8 % (13.4-35.0); Mean Corpuscular HGB Conc 33 % (30-34); Mean Corpuscular Volume 78 fl (79-97); Monocytes # (Auto) 0.5 K/mm3 (0.0-0.8); Monocytes % (Auto) 7.5 % (0.0-7.3); Platelet Count 200 K/mm3 (140-440); Red Blood Count 2.34 M/mm3 (3.65-5.03); Red Cell Distribution Width 16.4 % (13.2-15.2)
[2021-11-07 18:43] LABS: Hematocrit 18.3 % (30.3-42.9)
[2021-11-07 18:53] LABS: Creatine Kinase MB 2.4 ng/mL (0.0-4.0)
[2021-11-07 18:58] LABS: Albumin 4.3 g/dL (3.9-5); Calcium 9.3 mg/dL (8.4-10.2); Hemolysis Index 0
[2021-11-07 19:03] LABS: Alanine Aminotransferase < 5 units/L (7-56)
[2021-11-07 19:08] LABS: BUN/Creatinine Ratio 4; Blood Urea Nitrogen 126 mg/dL (7-17)
[2021-11-07 20:20] LABS: Chol/HDL Ratio 2.31 %; HDL Cholesterol 57 mg/dL (40-59); LDL Cholesterol,Direct 53 mg/dL (50-130)
== END 2021-11-07 19:00 | disposition left against medical advice (07) ==
LOC: ED 16:27
DX: Z00.00 Encounter for general adult medical examination without abnormal findings (principal); Z53.21 Procedure and treatment not carried out due to patient leaving prior to being seen by health care provider
CPT/HCPCS: 71046; 80053; 80061; 82550; 82553; 84484; 85025